=== PATIENT | female | born 1950 | race Asian ===

== ENCOUNTER 2019-11-18 13:40 | Emergency (ER) | payer MEDICARE, OTHER ==
[~2019-11-18] VITALS: Ht 160 cm; Wt 63.5 kg
[2019-11-18] MEDS ORDERED: FAMOTIDINE. 20 MG/2 ML VIAL IV ONE ×2 (14:15→14:20)
[2019-11-18] MEDS ORDERED: diphenhydrAMINE 50 MG/1 ML VIAL IV ONE (14:15)
[2019-11-18] MEDS ORDERED: EPINEPHRINE 1 MG/1 ML AMP SQ ONE (14:15)
[2019-11-18] MEDS ORDERED: methylPREDNISolone SOD SUCC 125 MG/2 ML VIAL IV ONE (14:15)
[2019-11-18] MEDS ORDERED: methylPREDNISolone SOD SUCC 125 MG/2 ML VIAL ONE (14:19)
[2019-11-18] MEDS ORDERED: diphenhydrAMINE 50 MG/1 ML VIAL ONE (14:21)
[2019-11-18] MEDS ORDERED: EPINEPHRINE 1 MG/1 ML AMP ONE (14:21)
--- NOTE | 2019-11-18 14:50 | NUR ---
pt walked into bathroom with steady gait.
--- NOTE | 2019-11-18 15:25 | NUR ---
Patient discharged to home in stable conditon. Written and verbal after care instructions given. Patient verbalizes understanding of instructions.pt says feels better, breathing normally, no sign opf distress, tingling in the throat resolved. pt is arranging for ubrt to go home.
[2019-11-18 15:27] VITALS: BP 101/70
== END 2019-11-18 15:29 | disposition home or self-care (01) ==
LOC: ER 13:40
DX: T63.441A Toxic effect of venom of bees, accidental (unintentional), initial encounter (principal)
CPT/HCPCS: 96372; 96374; 96375; 99284; J0171; J1200; J2930; J3490; A4663